=== PATIENT | male | born 1995 | race Caucasian/White ===

== ENCOUNTER 2020-12-08 08:57 | Emergency (ER) | payer OTHER, SELFPAY ==
[2020-12-08 09:06] VITALS: BP 139/84; PULSE 84; RESP 16; TEMP 36.8; O2SAT 99; BMI 27.7
--- NOTE | 2020-12-08 09:12 | HMH.EDUTC ---
[facility] [place] Disposition Clinical Impression: Fingernail injury Qualifiers: Encounter type: initial encounter Laterality: right Qualified Code(s): S69.91XA - Unspecified injury of right wrist, hand and finger(s), initial encounter Disposition: Home, Self-Care Condition on Discharge: Good Instructions: DI for Nail Avulsion Injury Additional Instructions: Clean are well with antibacterial soap and water Warm soaks in warm water and epson salt may help with pain and cleaning of nail area As the new nail grows out, you will loose the detached nail and it will fall off You may trim the detached nail to help avoid getting it caught on stuff but make sure that there is no sharp edges Wear bandage around the nail area to hold it in place and help prevent you getting it caught on something Follow up with your Family Doctor if needed Straight to ER if any life threatening symptoms Return if needed Referrals: Andreas Gil [Primary Care Provider] - As needed Time of Disposition: 09:50 Medical Decision Making - Calderon Inquiry Pt receiving controlled substance: No Calderon was queried for this patient: No Vital Signs: 12/08/20 09:06 12/08/20 09:35 Temperature 98.2 F 98.2 F Temperature Source Oral Pulse Rate 84 Pulse Rate [Left] 84 Respiratory Rate 16 16 Blood Pressure 139/84 Blood Pressure [Right Arm] 139/84 Blood Pressure Mean [Right Arm] 102 02 Sat by Pulse Oximetry 99 Medical Decision Narrative: Nail bed appears intact with nail loose but still attached at the cuticle Spoke with ED physician and she came to the [facility] looked at the nail and agreed Patient educated that nail is protecting the nail bed and will eventually fall off but recommended to leave it in place and allow the other nail time to grow and the detached nail will fall off Patient educated to trim the nail down to help keep it from getting caught on things and wear a bandage around it to help patient educated to clean finger multiple times daily with antibacterial soap and water and watch for signs of infection such as redness, drainage and swelling all of which patient denies at this time [facility] [place] HPI - General Stated complaint: nail removal of ring finger right hand Time Seen by Provider: 12/08/20 09:12 Mode of Arrival: Ambulatory Source of Information: Patient Limitations: No Limitations Description of Symptoms (Recalled from Triage Doc. by RN): pt smashed his finger at work and his R ring fingernail is dangling and yellowed. pt requests the nail being taken off. HEENT Symptoms (Recalled from RN notes): No Resp Symptoms (Recalled from RN notes): No Skin Symptoms (Recalled from RN notes): No MS Symptoms (Recalled from RN notes): Yes (R ring fingernail dangling) Functional Status (Recalled from RN notes): na - History of Present Illness Provider Complaint: Patient state that he smashed his finger at work about 2 weeks ago States that since then the fingernail on his right ring finger is barely hanging on and he is getting it caught on things States that he noticed it looked yellowish in color States that he wants to have it removed - Related Data Allergies Allergy/AdvReac Type Severity Reaction Status Date / Time Clindamycin Allergy Unknown Uncoded 05/15/17 15:09 - Worker's Comp Is this a Worker's Comp case?: No [facility] History - Hepatitis A Screen Drug use history?: No High risk sexual behaviors?: No History of sexually transmitted infection?: No Currently employed?: No Childcare worker?: No Do you have indoor plumbing?: Yes Do you have electricity?: Yes Attestation statement:: This patient has been screened for Hepatitis A risk factors. I have reviewed the patient's past medical history: Yes ROS Obtained: Yes All systems reviewed & no additional complaints, Yes Systems reviewed as appropriate & no additional complaints - Constitutional Constitutional: Reports system reviewed and no additional complaints, except as docu, Denies body ache, Denie
[2020-12-08 09:35] VITALS: BP 139/84; PULSE 84; RESP 16; TEMP 36.8
== END 2020-12-08 10:08 | disposition home or self-care (01) ==
PROVIDERS: Emergency Provider Nurse Practitioner; PCP Internal Medicine
DX: S61.304A Unspecified open wound of right ring finger with damage to nail, initial encounter (principal); W23.0XXA Caught, crushed, jammed, or pinched between moving objects, initial encounter; Y92.69 Other specified industrial and construction area as the place of occurrence of the external cause; Y99.0 Civilian activity done for income or pay
CPT/HCPCS: 99202; G0463

== ENCOUNTER 2024-02-23 14:21 | Outpatient (CLI) | payer OTHER, SELFPAY ==
--- NOTE | 2024-02-23 14:29 | XR_ITS ---
PROCEDURE INFORMATION: Exam: XR Cervical Spine Exam date and time: 02/23/2024 2:30 PM Age: 28 years old Clinical indication: Other: Strain; Additional info: Neck strain TECHNIQUE: Imaging protocol: Radiologic exam of the cervical spine. Views: 2 or 3 views. Total images: 2 COMPARISON: No relevant prior studies available. FINDINGS: Bones/joints: Normal. No acute fracture. Normal alignment. Soft tissues: Unremarkable. IMPRESSION: No acute findings.
== END 2024-02-23 23:59 | disposition home or self-care (01) ==
PROVIDERS: PCP Family Medicine; Visit Provider Family Medicine
DX: M54.2 Cervicalgia (principal); S16.1XXA Strain of muscle, fascia and tendon at neck level, initial encounter
CPT/HCPCS: 72040